=== PATIENT | female | born 1940 | race Caucasian/White ===

== ENCOUNTER 2017-03-05 15:51 | Emergency (ER) | payer MEDICARE, MEDICAID ==
[2017-03-05 16:09] VITALS: BP 160/74
--- NOTE | 2017-03-05 16:16 | EDM.PDOC ---
ED HPI Trauma - General Chief Complaint: Lower Extremity Injury/Pain Stated Complaint: THIGH/LEG SWEELING Time Seen by Provider: 03/05/17 16:02 Source: Reports: Patient History Limitations: Reports: No limitations - History of Present Illness INITIAL COMMENTS - FREE TEXT/NARRATIVE: History of present illness: [] Patient has had years of right leg swelling that has been progressively getting worse. 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 She has never been diagnosed with arthritis and denies any specific injuries to the leg or knee recently or in the past. Patient denies any chest pain, shortness of breath or calf pain. Review of systems: As per history of present illness and below otherwise all systems reviewed and negative. Past medical history: As per history of present illness and as reviewed below otherwise noncontributory. Surgical history: As per history of present illness and as reviewed below otherwise noncontributory. Social history: No reported history of drug or alcohol abuse. Family history: As per history of present illness and as reviewed below otherwise noncontributory. Physical exam: General: Well developed, well nourished in NAD HEENT: Atraumatic, normocephalic, pupils reactive, negative for conjunctival pallor or scleral icterus, mucous membranes moist, throat clear, neck supple, nontender, trachea midline. Lungs: Clear to auscultation, breath sounds equal bilaterally, chest nontender. Heart: S1S2, regular, negative for clicks, rubs, or JVD. Abdomen: Soft, nondistended, nontender. Negative for masses or hepatosplenomegaly. Negative for costovertebral tenderness. Pelvis: Stable nontender. Genitourinary: Deferred. Rectal: Deferred. Extremities: Atraumatic, marked edema of the right, leg negative for cords or calf pain. Neurovascular unremarkable. Neuro: Awake, alert. Cranial nerves II through XII unremarkable. Cerebellum unremarkable. Motor and sensory unremarkable throughout. Exam nonfocal. Diagnostics: [] X-ray of knee shows osteoarthritis, d-dimer is positive her for ultrasound right lower extremity was done and is negative for DVT Therapeutics: [] Impression: [] Chronic right lower extremity swelling, osteoarthritis right knee Plan: [] Followup PMD, elevate leg as much as possible Definitive disposition and diagnosis as appropriate pending reevaluation and review of above. Allergies/ADRs: Allergies No Known Allergies Allergy (Verified 03/05/17 16:10) Home Medications: Ambulatory Orders . [No Known Home Meds] 03/05/17 [Confirmed 03/05/17] Past Medical History - Past Health History Medical/Surgical History: Denies Medical/Surgical History - Infectious Disease History Infectious Disease History: Reports: Chicken pox, Measles, Mumps Social & Family History - Family History Family Medical History: Noncontributory - Tobacco Use Smoking Status *Q: Current Every Day Smoker Years of Tobacco use: 5 Packs/Tins Daily: 0.1 - Caffeine Use Caffeine Use: Reports: None - Recreational Drug Use Recreational Drug Use: No Review of Systems - Review of Systems Review Of Systems: See Below (See history of present illness) Trauma Exam - Physical Exam Exam: See Below (See history of present illness) Course - Vital Signs Last Recorded V/S: Last Vital Signs Temp 36.3 C 03/05/17 16:06 Pulse 103 H 03/05/17 16:06 Resp 18 03/05/17 16:06 BP 160/74 H 03/05/17 16:06 Pulse Ox 96 03/05/17 16:06 - Orders/Labs/Meds Orders: Active Orders 24 hr Category Date Time Status Knee 3V Rt [CR] Stat Exams 03/05/17 16:15 Taken Venous Doppler Lwr Ext Rt [US] Stat Exams 03/05/17 17:44 Taken Labs: Laboratory Tests 03/05/17 Range/Units 16:30 D-Dimer, Quantitative 0.85 H (0.0-0.52) mg/LFEU Departure - Departure Time of Disposition: 18:45 Disposition: Home, Self-Care 01 Condition: good Clinical Impression: Right leg swelling Osteoarthritis of right knee Qualifiers: Osteoarthritis type: unspecified Qualified Code(s): M17.11 - Unilateral primary osteoarthritis, right knee Instructions: Upper Respiratory Infection, Pediatric, [id number] Referrals: PCP,None [Primary Care Provider] - Forms: ED Department Discharge Additional Instructions: The following information is given to patients seen in the emergency department who are being discharged to home. This information is to outline your options for follow-up care. We provide all patients seen in our emergency department with a follow-up referral. The need for follow-up, as well as the timing and circumstances, are variable depending upon the specifics of your emergency department visit. If you don't have a primary care physician on staff, we will provide you with a referral. We always advise you to contact your personal physician following an emergency department visit to inform them of the circumstance of the visit and for follow-up with them and/or the need for any referrals to a consulting specialist. The emergency department will also refer you to a specialist when appropriate. This referral assures that you have the opportunity for follow-up care with a specialist. All of these measure are taken in an effort to provide you with optimal care, which includes your follow-up. Under all circumstances we always encourage you to contact your private physician who remains a resource for coordinating your care. When calling for follow-up care, please make the office aware that this follow-up is from your recent emergency room visit. If for any reason you are refused follow-up, please contact the [facility] Department at and asked to speak to the emergency department charge nurse. [facility] [address] [place] [address] - My Orders Last 24 Hours: My Active Orders 03/05/17 16:15 Knee 3V Rt [CR] Stat 03/05/17 17:44 Venous Doppler Lwr Ext Rt [US] Stat - Assessment/Plan Last 24 Hours: My Active Orders 03/05/17 16:15 Knee 3V Rt [CR] Stat 03/05/17 17:44 Venous Doppler Lwr Ext Rt [US] Stat
--- NOTE | 2017-03-06 14:06 | CR ---
EXAM DATE: 03/05/17 PATIENT'S AGE: 76 Patient: MARIA ELENA JOYCE Facility: [place], [place] Site . Site : 1940 Study: XRay Knee [id number]/10/2017 5:11:56 PM Ordering Physician: Blayne Palma Final Report: INDICATION: pain, swelling TECHNIQUE: Three views of the right knee COMPARISON: None FINDINGS: Bones: No fractures or bone lesions. Joint spaces: Tricompartmental osteoarthritic changes. Small nonspecific right knee joint effusion. Soft tissues: Unremarkable. IMPRESSION: No acute bony abnormality. Small nonspecific right knee joint effusion. Dictated by Nick Ramirez MD @ 03/05/2017 5:25:36 PM Dictated by: Nick Ramirez MD @ 03/05/2017 17:25:46 (Electronic Signature) Report Signed by Proxy and Original Signed Document filed in the Medical Record. MTDD
--- NOTE | 2017-03-06 14:17 | US ---
EXAM DATE: 03/05/17 PATIENT'S AGE: 76 Patient: MARIA ELENA JOYCE Facility: [place], [place] Site . Site : 1940 Study: US Extremity [id number]/10/2017 6:45:54 PM Ordering Physician: Blayne Palma Final Report: HISTORY: Right leg swelling. High D-dimer. Technique: Grayscale and color and spectral Doppler ultrasound of the right lower extremity deep veins. Comparison: None. Findings: Right leg: The common femoral vein is patent and compressible with normal response to augmentation. Deep femoral vein is patent. Femoral and popliteal veins are patent and compressible with normal response to augmentation. Posterior tibial and anterior tibial veins are patent and compressible. The peroneal vein is patent and compressible. Greater saphenous vein is patent and compressible at the junction with the femoral vein. Ill-defined soft tissue edema in the calf. Left leg: Common femoral vein is patent. Impression: 1. No right lower extremity DVT. 2. Right calf soft tissue edema. Dictated by Checo Fernandez MD @ Mar 05 2017 7:07PM (Electronic Signature) Report Signed by Proxy and Original Signed Document filed in the Medical Record. YASMIN
== END 2017-03-05 18:59 | disposition home or self-care (01) ==
LOC: MW.ED 15:51
DX: M17.11 Unilateral primary osteoarthritis, right knee (principal); M79.89 Other specified soft tissue disorders; F17.210 Nicotine dependence, cigarettes, uncomplicated
CPT/HCPCS: 36415; 73562-26-RT; 73562-RT; 85379; 93971-26-RT; 93971-RT; 99282; 99284-25

== ENCOUNTER → 2017-03-08 | Outpatient (CLI) | payer MEDICARE, MEDICAID | LOC: MW.CHIM 09:04 | PROVIDERS: ATTEND Internal Medicine | DX: R60.9 Edema, unspecified (principal); I50.9 Heart failure, unspecified; F03.90 Unspecified dementia, unspecified severity, without behavioral disturbance, psychotic disturbance, mood disturbance, and anxiety; I89.0 Lymphedema, not elsewhere classified | CPT/HCPCS: 36415; 80053; 83880; 85025; 99214 ==

== ENCOUNTER 2019-04-12 18:05 | Observation (INO) | payer MEDICARE, MEDICAID ==
[2019-04-12] MEDS ORDERED: Sodium Chloride 0.9% 1,000 ML IV ONE (19:09)
[2019-04-12] MEDS ORDERED: Albuterol/Ipratropium 3.0-0.5 MG/3 ML Neb Soln NEB ONE (19:09)
--- NOTE | 2019-04-12 19:09 | EDM.PDOC ---
ED HPI GENERAL MEDICAL PROBLEM - General Chief Complaint: General Stated Complaint: FEVER Time Seen by Provider: 04/12/19 18:54 Source of Information: Reports: Residential Records, Other (PACK PRESS OPERATOR from [employer]) History Limitations: Reports: Altered Mental Status (h/o end stage dementia), Combative/Threatening - History of Present Illness INITIAL COMMENTS - FREE TEXT/NARRATIVE: HISTORY AND PHYSICAL: History of present illness: Patient is a 78-year-old female who presents to the ED today from the [employer] bus with the PACK PRESS OPERATOR for concern of patient "not being her normal self". Patient has a history of end-stage dementia so history is limited due to this. PACK PRESS OPERATOR states she was given report that patient had potentially aspirated last night and since then has not been her usual self. PACK PRESS OPERATOR states that patient requires full care is to be done for her and is combative at her baseline. PACK PRESS OPERATOR states patient is not ambulatory and requires Eliel lift for transfers. Patient's family is not here with her and PACK PRESS OPERATOR states she has never actually seen them before. Patient is unable to speak to express any complaints today, per her baseline. PACK PRESS OPERATOR states patient is on an all liquid diet and has had issues with eating for quite some time. Review of systems: As per history of present illness and below otherwise all systems reviewed and negative. Past medical history: As per history of present illness and as reviewed below otherwise noncontributory. Surgical history: As per history of present illness and as reviewed below otherwise noncontributory. Social history: See social history for further information Family history: As per history of present illness and as reviewed below otherwise noncontributory. Physical exam: Exam limited due to patient combative. General: Patient is no acute distress. Patient laying comfortably on exam table. Combative when try to interact with patient. She does scream/shout occasionally on exam, PACK PRESS OPERATOR states per her baseline. Unable to communicate per her baseline. HEENT: Atraumatic, normocephalic, pupils equal and reactive bilaterally, negative for conjunctival pallor or scleral icterus, mucous membranes severely dry/tacky, TMs normal bilaterally, throat clear, neck supple, nontender, trachea midline. No drooling or trismus noted. No meningeal signs. No hot potato voice noted. Lungs: Clear to auscultation, breath sounds equal bilaterally, chest nontender. Heart: S1S2, regular rate and rhythm without overt murmur Abdomen: Firm, nondistended.Patient does express pain to palpation of abdomen. Negative for masses or hepatosplenomegaly. Negative for costovertebral tenderness. Pelvis: Stable nontender. Genitourinary: Deferred. Rectal: Deferred. Skin: Intact, warm, dry. No lesions or rashes noted. Extremities: Atraumatic, negative for cords or calf pain. Neurovascular unremarkable. Neuro: Awake, alert, oriented. Cranial nerves II through XII unremarkable. Cerebellum unremarkable. Motor and sensory unremarkable throughout. Exam nonfocal. Notes: Dr. Noble verbally involved in patient care. Son has arrived at ED after initial interview. Upon further questioning, he does not know much about his mothers health situation. Patient's kidney function and GFR are low. Discussed the risks vs benefits associated with the contrast imaging to son. Discussed the risks versus benefits of performing and not performing the scan with contrast as well as the risk to patients kidneys. Son desires to perform the scans despite this risk and is accepting of this risk. Dr. Ravi consult on patient and will admit to observation. Dr. Noble will assume care of patient and follow remaining diagnostics/ disposition, Diagnostics: CBC, CMP, UA, chest x-ray, d-dimer, CTA, abd/pelvic ct, lactate, blood cultures x 3 Therapeutics: Saline, DuoNeb, Ativan, Levoquin Impression: LLL pneumonia Dehydration End stage dementia Total self care deficit Plan: 1. Admit to observation to Dr. Ravi. Definitive disposition and diagnosis as appropriate pending reevaluation and review of above. Generalized Pain Score (Numeric/FACES): 4 - Related Data Allergies Allergy/AdvReac Type Severity Reaction Status Date / Time shellfish derived Allergy Rash Verified 04/12/19 18:30 Home Meds: Home Meds Acetaminophen [Tylenol Arthritis] 650 mg PO ASDIRECTED 04/12/19 [History] Bisacodyl [Biscolax] 10 mg RC ASDIRECTED 04/12/19 [History] Escitalopram [Lexapro] 10 mg PO DAILY 04/12/19 [History] Ferrous Sulfate [Feosol] 325 mg PO ASDIRECTED 04/12/19 [History] LORazepam [Ativan] 1 mg PO TID PRN 04/12/19 [History] Magnesium Hydroxide [Milk of Magnesia] 30 ml PO DAILY PRN 04/12/19 [History] Meloxicam 7.5 mg PO ASDIRECTED 04/12/19 [History] Past Medical History - Past Health History Medical/Surgical History: Denies Medical/Surgical History HEENT History: Reports: None Cardiovascular History: Reports: None Respiratory History: Reports: None Gastrointestinal History: Reports: None Genitourinary History: Reports: Urinary Incontinence, UTI, Recurrent HOSPICE COORDINATOR History: Reports: None Musculoskeletal History: Reports: Other (See Below) Other Musculoskeletal History: bilateral knee pain Neurological History: Reports: Alzheimers Disease Psychiatric History: Reports: Alzheimers Disease, Anxiety Endocrine/Metabolic History: Reports: None Hematologic History: Reports: None Immunologic History: Reports: None Oncologic (Cancer) History: Reports: None Dermatologic History: Reports: None - Infectious Disease History Infectious Disease History: Reports: Chicken Pox, Measles, Mumps - Past Surgical History Head Surgeries/Procedures: Reports: None Female Surgical History: Reports: None Social & Family History - Family History Family Medical History: Noncontributory - Tobacco Use Smoking Status *Q: Never Smoker Second Hand Smoke Exposure: No - Caffeine Use Caffeine Use: Reports: None - Recreational Drug Use Recreational Drug Use: No ED ROS GENERAL - Review of Systems Review Of Systems: ROS reveals no pertinent complaints other than HPI. ED EXAM, GENERAL - Physical Exam Exam: See Below (see dictation) Course - Vital Signs Last Recorded V/S: Last Vital Signs Temp 36.3 C 04/12/19 18:35 Pulse 107 H 04/12/19 21:59 Resp 21 H 04/12/19 21:59 BP 118/71 04/12/19 21:59 Pulse Ox 96 04/12/19 21:59 - Orders/Labs/Meds Orders: Active Orders 24 hr Category Date Time Status Admission Status [Patient Status] [ADT] Stat ADT 04/12/19 22:15 Active RT Aerosol Therapy [RC] ASDIRECTED Care 04/12/19 19:09 Active CULTURE BLOOD [BC] Stat Lab 04/12/19 19:04 Results CULTURE BLOOD [BC] Stat Lab 04/12/19 19:30 Received Levofloxacin/Dextrose 5%-Water [Levaquin in D5W 750 MG/ Med 04/12/19 21:10 Active 150 ML] 750 mg Premix Bag 1 bag IV ONETIME Sodium Chloride 0.9% [Normal Saline] 1,000 ml Med 04/12/19 19:09 Active IV STAT Blood Culture x2 Reflex Set [OM.PC] Stat Oth 04/12/19 19:19 Ordered Medication Orders Sodium Chloride (Normal Saline) 1,000 mls @ 100 mls/hr IV STAT ONE Stop: 04/13/19 05:08 Last Infusion: 04/12/19 20:18 Dose: 999 mls/hr Admin: 04/12/19 19:44 Dose: 100 mls/hr Levofloxacin/Dextrose 750 mg/ (Premix) 150 mls @ 100 mls/hr IV ONETIME ONE Stop: 04/12/19 22:39 Last Admin: 04/12/19 21:54 Dose: 100 mls/hr Labs: Laboratory Tests 04/12/19 04/12/19 04/12/19 Range/Units 19:04 19:04 19:04 WBC 20.86 H (4.0-11.0) K/uL RBC 3.68 L (4.30-5.90) M/uL Hgb 8.2 L (12.0-16.0) g/dL Hct 29.3 L (36.0-46.0) % MCV 79.6 L (80.0-98.0) fL MCH 22.3 L (27.0-32.0) pg MCHC 28.0 L (31.0-37.0) g/dL RDW Std Deviation 47.6 (28.0-62.0) fl RDW Coeff of Wil 17 H (11.0-15.0) % Plt Count 628 H (150-400) K/uL MPV 9.20 (7.40-12.00) fL Neut % (Auto) 85.7 H (48.0-80.0) % Lymph % (Auto) 8.8 L (16.0-40.0) % Sandoval % (Auto) 5.4 (0.0-15.0) % Eos % (Auto) 0.0 (0.0-7.0) % Baso % (Auto) 0.1 (0.0-1.5) % Neut # (Auto) 17.9 H (1.4-5.7) K/uL Lymph # (Auto) 1.8 (0.6-2.4) K/uL [place] # (Auto) 1.1 H (0.0-0.8) K/uL Eos # (Auto) 0.0 (0.0-0.7) K/uL Baso # (Auto) 0.0 (0.0-0.1) K/uL Nucleated RBC % 0.0 /100WBC Nucleated RBCs # 0 K/uL D-Dimer, Quantitative 1.70 H (0.0-0.50) mg/L FEU Lactate (0.20-2.00) mmol/L Sodium 145 (136-145) mmol/L Potassium 4.4 (3.5-5.1) mmol/L Chloride 107 (98-107) mmol/L Carbon Dioxide 27.5 (21.0-32.0) mmol/L BUN 34 H (7.0-18.0) mg/dL Creatinine 1.4 H (0.6-1.0) mg/dL Est Cr Clr Drug Dosing 31.50 mL/min Estimated GFR (MDRD) 36.5 ml/min Glucose 115 H (74-106) mg/dL Calcium 9.8 (8.5-10.1) mg/dL Total Bilirubin 0.3 (0.2-1.0) mg/dL AST 21 (15-37) IU/L ALT 13 L (14-63) IU/L Alkaline Phosphatase 155 H (46-116) U/L Total Protein 7.4 (6.4-8.2) g/dL Albumin 1.6 L (3.4-5.0) g/dL Globulin 5.8 H (2.6-4.0) g/dL Albumin/Globulin Ratio 0.3 L (0.9-1.6) Urine Color Urine Appearance Urine pH (5.0-8.0) Ur Specific [place] (1.001-1.035) Urine Protein (NEGATIVE) mg/dL Urine Glucose (UA) (NEGATIVE) mg/dL Urine Ketones (NEGATIVE) mg/dL Urine Occult Blood (NEGATIVE) Urine Nitrite (NEGATIVE) Urine Bilirubin (NEGATIVE) Urine Urobilinogen (<2.0) EU/dL Ur Leukocyte Esterase (NEGATIVE) Urine RBC (0-2/HPF) Urine WBC (0-5/HPF) Ur Epithelial Cells (NONE-FEW) Urine Bacteria (NEGATIVE) 04/12/19 04/12/19 Range/Units 19:20 19:30 WBC (4.0-11.0) K/uL RBC (4.30-5.90) M/uL Hgb (12.0-16.0) g/dL Hct (36.0-46.0) % MCV (80.0-98.0) fL MCH (27.0-32.0) pg MCHC (31.0-37.0) g/dL RDW Std Deviation (28.0-62.0) fl RDW Coeff of Wil (11.0-15.0) % Plt Count (150-400) K/uL MPV (7.40-12.00) fL Neut % (Auto) (48.0-80.0) % Lymph % (Auto) (16.0-40.0) % Sandoval % (Auto) (0.0-15.0) % Eos % (Auto) (0.0-7.0) % Baso % (Auto) (0.0-1.5) % Neut # (Auto) (1.4-5.7) K/uL Lymph # (Auto) (0.6-2.4) K/uL Sandoval # (Auto) (0.0-0.8) K/uL Eos # (Auto) (0.0-0.7) K/uL Baso # (Auto) (0.0-0.1) K/uL Nucleated RBC % /100WBC Nucleated RBCs # K/uL D-Dimer, Quantitative (0.0-0.50) mg/L FEU Lactate 1.6 (0.20-2.00) mmol/L Sodium (136-145) mmol/L Potassium (3.5-5.1) mmol/L Chloride (98-107) mmol/L Carbon Dioxide (21.0-32.0) mmol/L BUN (7.0-18.0) mg/dL Creatinine (0.6-1.0) mg/dL Est Cr Clr Drug Dosing mL/min Estimated GFR (MDRD) ml/min Glucose (74-106) mg/dL Calcium (8.5-10.1) mg/dL Total Bilirubin (0.2-1.0) mg/dL AST (15-37) IU/L ALT (14-63) IU/L Alkaline Phosphatase (46-116) U/L Total Protein (6.4-8.2) g/dL Albumin (3.4-5.0) g/dL Globulin (2.6-4.0) g/dL Albumin/Globulin Ratio (0.9-1.6) Urine Color YELLOW Urine Appearance CLEAR Urine pH 5.5 (5.0-8.0) Ur Specific [place] >= 1.030 (1.001-1.035) Urine Protein TRACE H (NEGATIVE) mg/dL Urine Glucose (UA) NEGATIVE (NEGATIVE) mg/dL Urine Ketones TRACE H (NEGATIVE) mg/dL Urine Occult Blood NEGATIVE (NEGATIVE) Urine Nitrite NEGATIVE (NEGATIVE) Urine Bilirubin NEGATIVE (NEGATIVE) Urine Urobilinogen 0.2 (<2.0) EU/dL Ur Leukocyte Esterase NEGATIVE (NEGATIVE) Urine RBC 0-2 (0-2/HPF) Urine WBC 0-2 (0-5/HPF) Ur Epithelial Cells FEW (NONE-FEW) Urine Bacteria FEW (NEGATIVE) Meds: Medications Generic Name Dose Route Start Last Admin Trade Name Sofi PRN Reason Stop Dose Admin Sodium Chloride 1,000 mls @ 100 mls/hr 04/12/19 19:09 04/12/19 20:18 Normal Saline IV 04/13/19 05:08 999 mls/hr STAT ONE Infusion Levofloxacin/Dextrose 750 mg/ 150 mls @ 100 mls/hr 04/12/19 21:10 04/12/19 21 :54 Premix IV 04/12/19 22:39 100 mls/hr ONETIME ONE Administration Discontinued Medications Generic Name Dose Route Start Last Admin Trade Name Sofi PRN Reason Stop Dose Admin Albuterol/Ipratropium 3 ml 04/12/19 19:09 04/12/19 19:45 Duoneb 3.0-0.5 Mg/3 Ml NEB 04/12/19 19:10 3 ml ONETIME ONE Administration Iopamidol 100 ml 04/12/19 21:39 04/12/19 21:44 Isovue-370 (76%) IVPUSH 04/12/19 21:40 100 ml ONETIME ONE Administration Lorazepam 0.5 mg 04/12/19 19:01 04/12/19 20:10 Ativan IVPUSH 04/12/19 19:02 0.5 mg ONETIME ONE Administration Departure - Departure Time of Disposition: 22:19 Disposition: Refer to Observation Clinical Impression: Dehydration, Total self-care deficit Left lower lobe pneumonia Qualifiers: Pneumonia type: due to unspecified organism Qualified Code(s): J18.1 - Lobar pneumonia, unspecified organism Dementia Qualifiers: Dementia type: unspecified type Dementia behavioral disturbance: with behavioral disturbance Qualified Code(s): F03.91 - Unspecified dementia with behavioral disturbance - Discharge Information Referrals: Jose Luis Salas MD [Primary Care Provider] - Forms: ED Department Discharge - My Orders Last 24 Hours: My Active Orders 04/12/19 19:04 CULTURE BLOOD [BC] Stat 04/12/19 19:09 RT Aerosol Therapy [RC] ASDIRECTED Sodium Chloride 0.9% [Normal Saline] 1,000 ml IV STAT 04/12/19 19:19 Blood Culture x2 Reflex Set [OM.PC] Stat 04/12/19 19:30 CULTURE BLOOD [BC] Stat 04/12/19 21:10 Levofloxacin/Dextrose 5%-Water [Levaquin in D5W 750 MG/150 ML] 750 mg Premix Bag 1 bag IV ONETIME 04/12/19 22:15 Admission Status [Patient Status] [ADT] Stat - Assessment/Plan Last 24 Hours: My Active Orders 04/12/19 19:04 CULTURE BLOOD [BC] Stat 04/12/19 19:09 RT Aerosol Therapy [RC] ASDIRECTED Sodium Chloride 0.9% [Normal Saline] 1,000 ml IV STAT 04/12/19 19:19 Blood Culture x2 Reflex Set [OM.PC] Stat 04/12/19 19:30 CULTURE BLOOD [BC] Stat 04/12/19 21:10 Levofloxacin/Dextrose 5%-Water [Levaquin in D5W 750 MG/150 ML] 750 mg Premix Bag 1 bag IV ONETIME 04/12/19 22:15 Admission Status [Patient Status] [ADT] Stat
[2019-04-12] MEDS: LORazepam 2 MG/ML SDV IVPUSH ONE ×2 (19:45→20:10)
--- NOTE | 2019-04-12 19:52 | CR ---
INDICATION: Hypoxia COMPARISON: none TECHNIQUE: AP erect chest performed at 7:12 p.m. FINDINGS: There is a focal infiltrate within the posterior basal segment left lower lobe. Lungs are otherwise clear. The heart, mediastinum and pulmonary vessels are of normal size. There is no evidence of pleural fluid. IMPRESSION: Left lower lobe pneumonia. Dictated by Hector Travis MD @ Apr 12 2019 7:48PM Signed by Dr. Hector Travis @ Apr 12 2019 7:49PM
[2019-04-12] MEDS ORDERED: Levofloxacin/Dextrose 5%-Water 750 MG in Premix Bag 1 BAG IV ONE (21:10)
[2019-04-12] MEDS ORDERED: Iopamidol 755 Mg/ML 100 ML Bottle IVPUSH ONE (21:39)
--- NOTE | 2019-04-12 22:10 | CT ---
HISTORY: Chest pain, fever. TECHNIQUE: 100 mL of Isovue-370 intravenous contrast administered. COMPARISON: No prior. FINDINGS: Assessment for pulmonary emboli is limited by both respiratory motion and nonoptimal opacification of the pulmonary arterial circulation. There is no large or central pulmonary embolus though overall the study is nondiagnostic for pulmonary embolism. Lower lobe segmental and subsegmental pulmonary emboli are poorly evaluated. There is decreased attenuation within a right upper lobe apicoposterior pulmonary artery on image #230 of series 41. This could relate to artifact though a pulmonary embolism in that location is not excluded. Consideration could be given to obtaining a repeat study. Alternately, venous ultrasound lower leg CT performed to assess for DVT. There is no thoracic aortic aneurysm or dissection. Coronary arteriosclerotic vascular calcifications are present. No significant pericardial effusion. - There are infiltrates within the lower lobes, especially left lower lobe where there is consolidation. This may relate to pneumonia. Areas of atelectasis within the right middle lobe and lingula. Within the upper lobes, there are centrilobular nodular infiltrates. There is no pleural effusion or pneumothorax. - Degenerative changes of the spine. No acute fractures. IMPRESSION: 1. Bilateral lung infiltrates including consolidation within the left lower lobe likely indicating pneumonia. Additional areas of nodular infiltrate. Followup to confirm resolution is recommended. 2. Study is nondiagnostic/indeterminate for pulmonary embolism secondary to respiratory motion and inadequate opacification of the pulmonary arterial circulation. There is no large or central pulmonary embolus. Depending on clinical suspicion for pulmonary embolism, either repeat study with reinjection of contrast could be performed or alternatively venous ultrasound of the lower extremities could be performed to assess for DVT. Dictated by Jacques Braga MD @ 04/12/2019 10:08:56 PM Please note that all CT scans at this facility use dose modulation, iterative reconstruction, and/or weight-based dosing when appropriate to reduce radiation dose to as low as reasonably achievable. Dictated by: Jacques Braga MD @ 04/12/2019 22:09:03 (Electronically Signed)
--- NOTE | 2019-04-12 22:16 | CT ---
HISTORY: Pain. Fever. TECHNIQUE: Intravenous contrast enhanced CT of the abdomen and pelvis. 100 mL of Isovue-370 intravenous contrast administered. COMPARISON: No prior. FINDINGS: Chest CT is reported separately. Please see that report for further details regarding lung parenchymal findings. - There is a 4.6 cm mass within the right hepatic lobe. This is seen on image #44 and could relate to a primary hepatic neoplasm or a metastatic lesion. There is no biliary ductal dilatation. Patient is status post cholecystectomy. The spleen and adrenal glands are normal. There is no focal pancreatic abnormality. Symmetric nephrograms. No hydronephrosis. No obstructive urinary calculus. Urinary bladder is nondistended. Patient has previously undergone a hysterectomy. - No small bowel obstruction. Large amount of stool within the rectum. No diverticulitis. No abdominal fluid collection or free air. Mildly ectatic abdominal aorta which measures 2.3 cm diameter. - Heterogeneous 13 cm masslike process involving the left gluteal region, posterior to the ischium and proximal femur. This is seen on image #164 of series 501 extends beyond the [id number]. This could relate to a soft tissue tumor. A complex hematoma would be a additional consideration. - Degenerative changes of the lumbar spine. No acute lumbar fracture. No acute pelvic fracture. IMPRESSION: 1. 4.6 cm right hepatic lobe mass which could relate to a primary hepatic neoplasm or to a metastasis. 2. 13 cm complex process involving the left gluteal region may relate to a soft tissue tumor. A complex hematoma would be an additional consideration. 3. Prior cholecystectomy. Normal appearance of the biliary system status postcholecystectomy. 4. Large amount of stool within the rectum. 5. Please see chest CT report for further details regarding lung parenchymal findings. Dictated by Jacques Braga MD @ 04/12/2019 10:15:01 PM Please note that all CT scans at this facility use dose modulation, iterative reconstruction, and/or weight-based dosing when appropriate to reduce radiation dose to as low as reasonably achievable. Dictated by: Jacques Braga MD @ 04/12/2019 22:15:06 (Electronically Signed)
[2019-04-12] MEDS ORDERED: LORazepam 2 MG/ML SDV IVPUSH PRN (22:56)
[2019-04-12] MEDS ORDERED: Acetaminophen 325 MG Tab PO PRN (22:57)
[2019-04-12] MEDS ORDERED: oxyCODONE 5 MG Tab PO PRN (22:57)
[2019-04-12] MEDS ORDERED: Albuterol/Ipratropium 3.0-0.5 MG/3 ML Neb Soln NEB PRN (22:58)
[2019-04-12] MEDS ORDERED: Sodium Chloride 0.9% 1,000 ML IV SCH (23:00)
[2019-04-13] MEDS ORDERED: LORazepam 1 MG Tab PO PRN (04:55)
[2019-04-13] MEDS ORDERED: Magnesium Hydroxide 400 MG/5 ML Susp 30 ML Cup PO PRN (04:55)
[2019-04-13] MEDS ORDERED: Temazepam 15 MG Cap PO PRN (04:56)
[2019-04-13] MEDS ORDERED: Heparin Sodium 5,000 Units/ML Vial SUBCUT SCH (05:00)
[2019-04-13] MEDS: Escitalopram 10 MG Tab PO SCH (08:20)
--- NOTE | 2019-04-13 08:26 | PCM.HP ---
<Denton Aguirre - Last Filed: 04/13/19 08:32> H&P History of Present Illness - General Date of Service: 04/13/19 Admit Problem/Dx: Admission Diagnosis/Problem Admission Diagnosis/Problem Pneumonia Source of Information: Old Records History Limitations: Reports: No Limitations - History of Present Illness Initial Comments - Free Text/Narative: 78F history of dementia from [place] home presented to the ER with concerns of possible aspiration the night before. As per supply controller, she has not been her usual self. ER work up found the patient to have bilateral infiltrates with predominately a LLL pneumonia. CT angiography was unable to rule out a PE but clinically, there is a etiology (pneumonia) for the patient's state along with no calf tenderness, tachypnea, or other risks concerning of a PE. Generalized Pain Score (Numeric/FACES): 4 - Related Data Allergies/Adverse Reactions: Allergies Allergy/AdvReac Type Severity Reaction Status Date / Time shellfish derived Allergy Rash Verified 04/12/19 18:30 Home Medications: Home Meds Acetaminophen [Tylenol Arthritis] 650 mg PO Q4H 04/12/19 [History] Bisacodyl [Biscolax] 10 mg RC DAILY PRN 04/12/19 [History] Escitalopram [Lexapro] 10 mg PO DAILY 04/12/19 [History] Ferrous Sulfate [Feosol] 325 mg PO BID 04/12/19 [History] LORazepam [Ativan] 1 mg PO BID PRN 04/12/19 [History] Magnesium Hydroxide [Milk of Magnesia] 30 ml PO DAILY PRN 04/12/19 [History] Meloxicam 7.5 mg PO DAILY 04/12/19 [History] Acetaminophen [Arthritis Pain Relief] 650 mg PO TID 04/13/19 [History] Furosemide 20 mg PO DAILY 04/13/19 [History] Menthol [Cold & Hot Pain Relief] 1 each TP TID 04/13/19 [History] Multivitamin with Minerals [Multiple Vitamin] 1 tab PO DAILY 04/13/19 [History] Past Medical History - Past Health History Medical/Surgical History: Denies Medical/Surgical History HEENT History: Reports: None Cardiovascular History: Reports: None Respiratory History: Reports: None Gastrointestinal History: Reports: None Genitourinary History: Reports: Urinary Incontinence, UTI, Recurrent ANALYTICS ARCHITECT History: Reports: None Musculoskeletal History: Reports: Other (See Below) Other Musculoskeletal History: bilateral knee pain Neurological History: Reports: Alzheimers Disease Psychiatric History: Reports: Alzheimers Disease, Anxiety Endocrine/Metabolic History: Reports: None Hematologic History: Reports: None Immunologic History: Reports: None Oncologic (Cancer) History: Reports: None Dermatologic History: Reports: None - Infectious Disease History Infectious Disease History: Reports: Chicken Pox, Measles, Mumps - Past Surgical History Head Surgeries/Procedures: Reports: None Female Surgical History: Reports: None Social & Family History - Family History Family Medical History: Noncontributory - Tobacco Use Smoking Status *Q: Never Smoker Second Hand Smoke Exposure: No - Caffeine Use Caffeine Use: Reports: None - Recreational Drug Use Recreational Drug Use: No H&P Review of Systems - Review of Systems: Review Of Systems: Unable To Obtain (secondary to advanced dementia) Exam - Exam Exam: See Below - Vital Signs Vital Signs: Last Vital Signs Temp 36.3 C 04/13/19 07:40 Pulse 100 04/13/19 07:40 Resp 16 04/13/19 07:40 BP 110/59 L 04/13/19 07:40 Pulse Ox 93 L 04/13/19 07:40 Weight: 87.09 kg - Exam General: Alert HEENT: Conjunctiva Clear, Mucosa Moist & [place] Neck: Supple, Trachea Midline Lungs: Clear to Auscultation, Normal Respiratory Effort Cardiovascular: Regular Rate, Regular Rhythm GI/Abdominal Exam: Normal Bowel Sounds, Soft Extremities: Other (trace edema) Peripheral Pulses: 1+: Dorsalis Pedis (L), Dorsalis Pedis (R) Psychiatric: Alert - Patient Data Lab Results Last 24 hrs: Laboratory Results - last 24 hr 04/12/19 04/12/19 04/12/19 Range/Units 19:04 19:04 19:04 WBC 20.86 H (4.0-11.0) K/uL RBC 3.68 L (4.30-5.90) M/uL Hgb 8.2 L (12.0-16.0) g/dL Hct 29.3 L (36.0-46.0) % MCV 79.6 L (80.0-98.0) fL MCH 22.3 L (27.0-32.0) pg MCHC 28.0 L (31.0-37.0) g/dL RDW Std Deviation 47.6 (28.0-62.0) fl RDW Coeff of Wil 17 H (11.0-15.0) % Plt Count 628 H (150-400) K/uL MPV 9.20 (7.40-12.00) fL Neut % (Auto) 85.7 H (48.0-80.0) % Lymph % (Auto) 8.8 L (16.0-40.0) % [place] % (Auto) 5.4 (0.0-15.0) % Eos % (Auto) 0.0 (0.0-7.0) % Baso % (Auto) 0.1 (0.0-1.5) % Neut # (Auto) 17.9 H (1.4-5.7) K/uL Lymph # (Auto) 1.8 (0.6-2.4) K/uL [place] # (Auto) 1.1 H (0.0-0.8) K/uL Eos # (Auto) 0.0 (0.0-0.7) K/uL Baso # (Auto) 0.0 (0.0-0.1) K/uL Nucleated RBC % 0.0 /100WBC Nucleated RBCs # 0 K/uL D-Dimer, Quantitative 1.70 H (0.0-0.50) mg/L FEU Lactate (0.20-2.00) mmol/L Sodium 145 (136-145) mmol/L Potassium 4.4 (3.5-5.1) mmol/L Chloride 107 (98-107) mmol/L Carbon Dioxide 27.5 (21.0-32.0) mmol/L BUN 34 H (7.0-18.0) mg/dL Creatinine 1.4 H (0.6-1.0) mg/dL Est Cr Clr Drug Dosing 31.50 mL/min Estimated GFR (MDRD) 36.5 ml/min Glucose 115 H (74-106) mg/dL Calcium 9.8 (8.5-10.1) mg/dL Total Bilirubin 0.3 (0.2-1.0) mg/dL AST 21 (15-37) IU/L ALT 13 L (14-63) IU/L Alkaline Phosphatase 155 H (46-116) U/L Total Protein 7.4 (6.4-8.2) g/dL Albumin 1.6 L (3.4-5.0) g/dL Globulin 5.8 H (2.6-4.0) g/dL Albumin/Globulin Ratio 0.3 L (0.9-1.6) Urine Color Urine Appearance Urine pH (5.0-8.0) Ur Specific [place] (1.001-1.035) Urine Protein (NEGATIVE) mg/dL Urine Glucose (UA) (NEGATIVE) mg/dL Urine Ketones (NEGATIVE) mg/dL Urine Occult Blood (NEGATIVE) Urine Nitrite (NEGATIVE) Urine Bilirubin (NEGATIVE) Urine Urobilinogen (<2.0) EU/dL Ur Leukocyte Esterase (NEGATIVE) Urine RBC (0-2/HPF) Urine WBC (0-5/HPF) Ur Epithelial Cells (NONE-FEW) Urine Bacteria (NEGATIVE) 04/12/19 04/12/19 04/13/19 Range/Units 19:20 19:30 07:01 WBC 12.55 H (4.0-11.0) K/uL RBC 2.90 L (4.30-5.90) M/uL Hgb 6.5 L (12.0-16.0) g/dL Hct 23.2 L (36.0-46.0) % MCV 80.0 (80.0-98.0) fL MCH 22.4 L (27.0-32.0) pg MCHC 28.0 L (31.0-37.0) g/dL RDW Std Deviation 48.9 (28.0-62.0) fl RDW Coeff of Wil 17 H (11.0-15.0) % Plt Count 499 H (150-400) K/uL MPV 8.80 (7.40-12.00) fL Neut % (Auto) 87.0 H (48.0-80.0) % Lymph % (Auto) 6.9 L (16.0-40.0) % [place] % (Auto) 5.5 (0.0-15.0) % Eos % (Auto) 0.5 (0.0-7.0) % Baso % (Auto) 0.1 (0.0-1.5) % Neut # (Auto) 10.9 H (1.4-5.7) K/uL Lymph # (Auto) 0.9 (0.6-2.4) K/uL [place] # (Auto) 0.7 (0.0-0.8) K/uL Eos # (Auto) 0.1 (0.0-0.7) K/uL Baso # (Auto) 0.0 (0.0-0.1) K/uL Nucleated RBC % 0.0 /100WBC Nucleated RBCs # 0 K/uL D-Dimer, Quantitative (0.0-0.50) mg/L FEU Lactate 1.6 (0.20-2.00) mmol/L Sodium (136-145) mmol/L Potassium (3.5-5.1) mmol/L Chloride (98-107) mmol/L Carbon Dioxide (21.0-32.0) mmol/L BUN (7.0-18.0) mg/dL Creatinine (0.6-1.0) mg/dL Est Cr Clr Drug Dosing mL/min Estimated GFR (MDRD) ml/min Glucose (74-106) mg/dL Calcium (8.5-10.1) mg/dL Total Bilirubin (0.2-1.0) mg/dL AST (15-37) IU/L ALT (14-63) IU/L Alkaline Phosphatase (46-116) U/L Total Protein (6.4-8.2) g/dL Albumin (3.4-5.0) g/dL Globulin (2.6-4.0) g/dL Albumin/Globulin Ratio (0.9-1.6) Urine Color YELLOW Urine Appearance CLEAR Urine pH 5.5 (5.0-8.0) Ur Specific [place] >= 1.030 (1.001-1.035) Urine Protein TRACE H (NEGATIVE) mg/dL Urine Glucose (UA) NEGATIVE (NEGATIVE) mg/dL Urine Ketones TRACE H (NEGATIVE) mg/dL Urine Occult Blood NEGATIVE (NEGATIVE) Urine Nitrite NEGATIVE (NEGATIVE) Urine Bilirubin NEGATIVE (NEGATIVE) Urine Urobilinogen 0.2 (<2.0) EU/dL Ur Leukocyte Esterase NEGATIVE (NEGATIVE) Urine RBC 0-2 (0-2/HPF) Urine WBC 0-2 (0-5/HPF) Ur Epithelial Cells FEW (NONE-FEW) Urine Bacteria FEW (NEGATIVE) 04/13/19 Range/Units 07:01 WBC (4.0-11.0) K/uL RBC (4.30-5.90) M/uL Hgb (12.0-16.0) g/dL Hct (36.0-46.0) % MCV (80.0-98.0) fL MCH (27.0-32.0) pg MCHC (31.0-37.0) g/dL RDW Std Deviation (28.0-62.0) fl RDW Coeff of Wil (11.0-15.0) % Plt Count (150-400) K/uL MPV (7.40-12.00) fL Neut % (Auto) (48.0-80.0) % Lymph % (Auto) (16.0-40.0) % [place] % (Auto) (0.0-15.0) % Eos % (Auto) (0.0-7.0) % Baso % (Auto) (0.0-1.5) % Neut # (Auto) (1.4-5.7) K/uL Lymph # (Auto) (0.6-2.4) K/uL [place] # (Auto) (0.0-0.8) K/uL Eos # (Auto) (0.0-0.7) K/uL Baso # (Auto) (0.0-0.1) K/uL Nucleated RBC % /100WBC Nucleated RBCs # K/uL D-Dimer, Quantitative (0.0-0.50) mg/L FEU Lactate (0.20-2.00) mmol/L Sodium 145 (136-145) mmol/L Potassium 3.7 (3.5-5.1) mmol/L Chloride 110 H (98-107) mmol/L Carbon Dioxide 27.1 (21.0-32.0) mmol/L BUN 27 H (7.0-18.0) mg/dL Creatinine 1.0 (0.6-1.0) mg/dL Est Cr Clr Drug Dosing 44.35 mL/min Estimated GFR (MDRD) 53.8 ml/min Glucose 88 (74-106) mg/dL Calcium 8.9 (8.5-10.1) mg/dL Total Bilirubin 0.2 (0.2-1.0) mg/dL AST 17 (15-37) IU/L ALT 13 L (14-63) IU/L Alkaline Phosphatase 115 (46-116) U/L Total Protein 5.9 L (6.4-8.2) g/dL Albumin 1.2 L (3.4-5.0) g/dL Globulin 4.7 H (2.6-4.0) g/dL Albumin/Globulin Ratio 0.3 L (0.9-1.6) Urine Color Urine Appearance Urine pH (5.0-8.0) Ur Specific [place] (1.001-1.035) Urine Protein (NEGATIVE) mg/dL Urine Glucose (UA) (NEGATIVE) mg/dL Urine Ketones (NEGATIVE) mg/dL Urine Occult Blood (NEGATIVE) Urine Nitrite (NEGATIVE) Urine Bilirubin (NEGATIVE) Urine Urobilinogen (<2.0) EU/dL Ur Leukocyte Esterase (NEGATIVE) Urine RBC (0-2/HPF) Urine WBC (0-5/HPF) Ur Epithelial Cells (NONE-FEW) Urine Bacteria (NEGATIVE) Result Diagrams: 04/13/19 07:01 04/13/19 07:01 Murphy Results Last 24 hrs: Microbiology 04/12/19 19:04 Anaerobic Blood Culture - Final Blood - Venous Problem List Initiated/Reviewed/Updated: Yes Orders Last 24hrs: Active Orders 24 hr Category Date Time Status Admission Status [Patient Status] [ADT] Stat ADT 04/12/19 22:15 Active Oxygen Therapy [RC] PRN Care 04/13/19 04:56 Active RT Aerosol Therapy [RC] ASDIRECTED Care 04/12/19 19:09 Active RT Aerosol Therapy [RC] ASDIRECTED Care 04/12/19 22:58 Active Direct Response Consultant Discontinue [Cardiac Monitoring Care 04/12/19 22:55 Active Discontinue] [RC] Click to Edit VTE/DVT Education [RC] PER UNIT ROUTINE Care 04/13/19 04:56 Active Vital Signs [RC] Q4H Care 04/13/19 04:56 Active Consult to Hospice [CONS] Routine Cons 04/13/19 05:54 Active Pureed Diet [DIET] Diet 04/13/19 Breakfast Active CULTURE BLOOD [BC] Stat Lab 04/12/19 19:04 Results CULTURE BLOOD [BC] Stat Lab 04/12/19 19:30 Received Acetaminophen [Tylenol] Med 04/12/19 22:57 Active 650 mg PO Q6H PRN Albuterol/Ipratropium [DuoNeb 3.0-0.5 MG/3 ML] Med 04/12/19 22:58 Active 3 ml NEB Q4HRRT PRN Escitalopram [Lexapro] Med 04/13/19 09:00 Active 10 mg PO DAILY Furosemide [Lasix] Med 04/13/19 09:00 Active 20 mg PO DAILY Heparin Sodium Med 04/13/19 05:00 Active 5,000 units SUBCUT Q8H LORazepam [Ativan] Med 04/12/19 22:56 Active 1 mg IVPUSH Q6H PRN LORazepam [Ativan] Med 04/13/19 04:55 Active 1 mg PO BID PRN Levofloxacin/Dextrose 5%-Water [Levaquin in D5W 250 MG/ Med 04/13/19 21:00 Active 50 ML] 250 mg Premix Bag 1 bag IV Q24H Magnesium Hydroxide [Milk of Magnesia] Med 04/13/19 04:55 Active 30 ml PO DAILY PRN Meloxicam [Mobic] Med 04/13/19 09:00 Active 7.5 mg PO DAILY Temazepam [Restoril] Med 04/13/19 04:56 Active 15 mg PO BEDTIME PRN oxyCODONE Med 04/12/19 22:57 Active 5 mg PO Q4H PRN Blood Culture x2 Reflex Set [OM.PC] Stat Oth 04/12/19 19:19 Ordered Resuscitation Status Routine Resus Stat 04/13/19 04:56 Ordered Medication Orders Acetaminophen (Tylenol) 650 mg PO Q6H PRN PRN Reason: Pain Albuterol/Ipratropium (Duoneb 3.0-0.5 Mg/3 Ml) 3 ml NEB Q4HRRT PRN PRN Reason: Shortness of Breath Escitalopram Oxalate (Lexapro) 10 mg PO DAILY [facility] Last Admin: 04/13/19 08:20 Dose: 10 mg Furosemide (Lasix) 20 mg PO DAILY [facility] Last Admin: 04/13/19 08:20 Dose: 20 mg Heparin Sodium (Porcine) (Heparin Sodium) 5,000 units SUBCUT Q8H [facility] Last Admin: 04/13/19 05:32 Dose: 5,000 units Levofloxacin/Dextrose 250 mg/ (Premix) 50 mls @ 50 mls/hr IV Q24H [facility] Lorazepam (Ativan) 1 mg IVPUSH Q6H PRN PRN Reason: Agitation Lorazepam (Ativan) 1 mg PO BID PRN PRN Reason: Allergies Magnesium Hydroxide (Milk Of Magnesia) 30 ml PO DAILY PRN PRN Reason: Constipation Meloxicam (Mobic) 7.5 mg PO DAILY [facility] Last Admin: 04/13/19 08:20 Dose: 7.5 mg Oxycodone HCl (Oxycodone) 5 mg PO Q4H PRN PRN Reason: Pain (moderate 4-6) Temazepam (Restoril) 15 mg PO BEDTIME PRN PRN Reason: Sleep Assessment/Plan Comment:: Assessment: #1. LLL Pneumonia #2. Leukocytosis #3. Normocytic anemia #4. RAMY #5. Thrombocytosis #6. History of advanced dementia, HLD, Mitral valve insufficiency Plan: #1. Refer to observation. Vitals per floor. DNR/DNI #2. Pureed diet #3. IV Levaquin #4. PRBC 2 units, recheck H/H #5. DC fluids given improvement in kidney function and trace edema on exam #6. Consult hospice as per attending #7. Stop heparin given anemia <[facility] Ravi - Last Filed: 04/13/19 09:10> H&P History of Present Illness - General Admit Problem/Dx: Admission Diagnosis/Problem Admission Diagnosis/Problem Pneumonia I have seen and examined to patient independently of medical records manager, Denton Aguirre MD. I have discussed the case for care of this patient with him. I have reviewed and approve of the plan of care as outlined by medical records manager.. Please see orders. Exam - Vital Signs Vital Signs: Last Vital Signs Temp 36.3 C 04/13/19 07:40 Pulse 100 04/13/19 07:40 Resp 16 04/13/19 07:40 BP 110/59 L 04/13/19 07:40 Pulse Ox 93 L 04/13/19 07:40 - Patient Data Lab Results Last 24 hrs: Laboratory Results - last 24 hr 04/12/19 04/12/19 04/12/19 Range/Units 19:04 19:04 19:04 WBC 20.86 H (4.0-11.0) K/uL RBC 3.68 L (4.30-5.90) M/uL Hgb 8.2 L (12.0-16.0) g/dL Hct 29.3 L (36.0-46.0) % MCV 79.6 L (80.0-98.0) fL MCH 22.3 L (27.0-32.0) pg MCHC 28.0 L (31.0-37.0) g/dL RDW Std Deviation 47.6 (28.0-62.0) fl RDW Coeff of Wil 17 H (11.0-15.0) % Plt Count 628 H (150-400) K/uL MPV 9.20 (7.40-12.00) fL Neut % (Auto) 85.7 H (48.0-80.0) % Lymph % (Auto) 8.8 L (16.0-40.0) % [place] % (Auto) 5.4 (0.0-15.0) % Eos % (Auto) 0.0 (0.0-7.0) % Baso % (Auto) 0.1 (0.0-1.5) % Neut # (Auto) 17.9 H (1.4-5.7) K/uL Lymph # (Auto) 1.8 (0.6-2.4) K/uL [place] # (Auto) 1.1 H (0.0-0.8) K/uL Eos # (Auto) 0.0 (0.0-0.7) K/uL Baso # (Auto) 0.0 (0.0-0.1) K/uL Nucleated RBC % 0.0 /100WBC Nucleated RBCs # 0 K/uL D-Dimer, Quantitative 1.70 H (0.0-0.50) mg/L FEU Lactate (0.20-2.00) mmol/L Sodium 145 (136-145) mmol/L Potassium 4.4 (3.5-5.1) mmol/L Chloride 107 (98-107) mmol/L Carbon Dioxide 27.5 (21.0-32.0) mmol/L BUN 34 H (7.0-18.0) mg/dL Creatinine 1.4 H (0.6-1.0) mg/dL Est Cr Clr Drug Dosing 31.50 mL/min Estimated GFR (MDRD) 36.5 ml/min Glucose 115 H (74-106) mg/dL Calcium 9.8 (8.5-10.1) mg/dL Total Bilirubin 0.3 (0.2-1.0) mg/dL AST 21 (15-37) IU/L ALT 13 L (14-63) IU/L Alkaline Phosphatase 155 H (46-116) U/L Total Protein 7.4 (6.4-8.2) g/dL Albumin 1.6 L (3.4-5.0) g/dL Globulin 5.8 H (2.6-4.0) g/dL Albumin/Globulin Ratio 0.3 L (0.9-1.6) Urine Color Urine Appearance Urine pH (5.0-8.0) Ur Specific [place] (1.001-1.035) Urine Protein (NEGATIVE) mg/dL Urine Glucose (UA) (NEGATIVE) mg/dL Urine Ketones (NEGATIVE) mg/dL Urine Occult Blood (NEGATIVE) Urine Nitrite (NEGATIVE) Urine Bilirubin (NEGATIVE) Urine Urobilinogen (<2.0) EU/dL Ur Leukocyte Esterase (NEGATIVE) Urine RBC (0-2/HPF) Urine WBC (0-5/HPF) Ur Epithelial Cells (NONE-FEW) Urine Bacteria (NEGATIVE) 04/12/19 04/12/19 04/13/19 Range/Units 19:20 19:30 07:01 WBC 12.55 H (4.0-11.0) K/uL RBC 2.90 L (4.30-5.90) M/uL Hgb 6.5 L (12.0-16.0) g/dL Hct 23.2 L (36.0-46.0) % MCV 80.0 (80.0-98.0) fL MCH 22.4 L (27.0-32.0) pg MCHC 28.0 L (31.0-37.0) g/dL RDW Std Deviation 48.9 (28.0-62.0) fl RDW Coeff of Wil 17 H (11.0-15.0) % Plt Count 499 H (150-400) K/uL MPV 8.80 (7.40-12.00) fL Neut % (Auto) 87.0 H (48.0-80.0) % Lymph % (Auto) 6.9 L (16.0-40.0) % [place] % (Auto) 5.5 (0.0-15.0) % Eos % (Auto) 0.5 (0.0-7.0) % Baso % (Auto) 0.1 (0.0-1.5) % Neut # (Auto) 10.9 H (1.4-5.7) K/uL Lymph # (Auto) 0.9 (0.6-2.4) K/uL [place] # (Auto) 0.7 (0.0-0.8) K/uL Eos # (Auto) 0.1 (0.0-0.7) K/uL Baso # (Auto) 0.0 (0.0-0.1) K/uL Nucleated RBC % 0.0 /100WBC Nucleated RBCs # 0 K/uL D-Dimer, Quantitative (0.0-0.50) mg/L FEU Lactate 1.6 (0.20-2.00) mmol/L Sodium (136-145) mmol/L Potassium (3.5-5.1) mmol/L Chloride (98-107) mmol/L Carbon Dioxide (21.0-32.0) mmol/L BUN (7.0-18.0) mg/dL Creatinine (0.6-1.0) mg/dL Est Cr Clr Drug Dosing mL/min Estimated GFR (MDRD) ml/min Glucose (74-106) mg/dL Calcium (8.5-10.1) mg/dL Total Bilirubin (0.2-1.0) mg/dL AST (15-37) IU/L ALT (14-63) IU/L Alkaline Phosphatase (46-116) U/L Total Protein (6.4-8.2) g/dL Albumin (3.4-5.0) g/dL Globulin (2.6-4.0) g/dL Albumin/Globulin Ratio (0.9-1.6) Urine Color YELLOW Urine Appearance CLEAR Urine pH 5.5 (5.0-8.0) Ur Specific [place] >= 1.030 (1.001-1.035) Urine Protein TRACE H (NEGATIVE) mg/dL Urine Glucose (UA) NEGATIVE (NEGATIVE) mg/dL Urine Ketones TRACE H (NEGATIVE) mg/dL Urine Occult Blood NEGATIVE (NEGATIVE) Urine Nitrite NEGATIVE (NEGATIVE) Urine Bilirubin NEGATIVE (NEGATIVE) Urine Urobilinogen 0.2 (<2.0) EU/dL Ur Leukocyte Esterase NEGATIVE (NEGATIVE) Urine RBC 0-2 (0-2/HPF) Urine WBC 0-2 (0-5/HPF) Ur Epithelial Cells FEW (NONE-FEW) Urine Bacteria FEW (NEGATIVE) 04/13/19 Range/Units 07:01 WBC (4.0-11.0) K/uL RBC (4.30-5.90) M/uL Hgb (12.0-16.0) g/dL Hct (36.0-46.0) % MCV (80.0-98.0) fL MCH (27.0-32.0) pg MCHC (31.0-37.0) g/dL RDW Std Deviation (28.0-62.0) fl RDW Coeff of Wil (11.0-15.0) % Plt Count (150-400) K/uL MPV (7.40-12.00) fL Neut % (Auto) (48.0-80.0) % Lymph % (Auto) (16.0-40.0) % [place] % (Auto) (0.0-15.0) % Eos % (Auto) (0.0-7.0) % Baso % (Auto) (0.0-1.5) % Neut # (Auto) (1.4-5.7) K/uL Lymph # (Auto) (0.6-2.4) K/uL [place] # (Auto) (0.0-0.8) K/uL Eos # (Auto) (0.0-0.7) K/uL Baso # (Auto) (0.0-0.1) K/uL Nucleated RBC % /100WBC Nucleated RBCs # K/uL D-Dimer, Quantitative (0.0-0.50) mg/L FEU Lactate (0.20-2.00) mmol/L Sodium 145 (136-145) mmol/L Potassium 3.7 (3.5-5.1) mmol/L Chloride 110 H (98-107) mmol/L Carbon Dioxide 27.1 (21.0-32.0) mmol/L BUN 27 H (7.0-18.0) mg/dL Creatinine 1.0 (0.6-1.0) mg/dL Est Cr Clr Drug Dosing 44.35 mL/min Estimated GFR (MDRD) 53.8 ml/min Glucose 88 (74-106) mg/dL Calcium 8.9 (8.5-10.1) mg/dL Total Bilirubin 0.2 (0.2-1.0) mg/dL AST 17 (15-37) IU/L ALT 13 L (14-63) IU/L Alkaline Phosphatase 115 (46-116) U/L Total Protein 5.9 L (6.4-8.2) g/dL Albumin 1.2 L (3.4-5.0) g/dL Globulin 4.7 H (2.6-4.0) g/dL Albumin/Globulin Ratio 0.3 L (0.9-1.6) Urine Color Urine Appearance Urine pH (5.0-8.0) Ur Specific [place] (1.001-1.035) Urine Protein (NEGATIVE) mg/dL Urine Glucose (UA) (NEGATIVE) mg/dL Urine Ketones (NEGATIVE) mg/dL Urine Occult Blood (NEGATIVE) Urine Nitrite (NEGATIVE) Urine Bilirubin (NEGATIVE) Urine Urobilinogen (<2.0) EU/dL Ur Leukocyte Esterase (NEGATIVE) Urine RBC (0-2/HPF) Urine WBC (0-5/HPF) Ur Epithelial Cells (NONE-FEW) Urine Bacteria (NEGATIVE) Result Diagrams: 04/13/19 07:01 04/13/19 07:01 [place] Results Last 24 hrs: Microbiology 04/12/19 19:04 Anaerobic Blood Culture - Final Blood - Venous Orders Last 24hrs: Active Orders 24 hr Category Date Time Status Admission Status [Patient Status] [ADT] Stat ADT 04/12/19 22:15 Active Oxygen Therapy [RC] PRN Care 04/13/19 04:56 Active RT Aerosol Therapy [RC] ASDIRECTED Care 04/12/19 19:09 Active RT Aerosol Therapy [RC] ASDIRECTED Care 04/12/19 22:58 Active Direct Response Consultant Discontinue [Cardiac Monitoring Care 04/12/19 22:55 Active Discontinue] [RC] Click to Edit VTE/DVT Education [RC] PER UNIT ROUTINE Care 04/13/19 04:56 Active Vital Signs [RC] Q4H Care 04/13/19 04:56 Active Consult to Hospice [CONS] Routine Cons 04/13/19 05:54 Active Pureed Diet [DIET] Diet 04/13/19 Breakfast Active CULTURE BLOOD [BC] Stat Lab 04/12/19 19:04 Results CULTURE BLOOD [BC] Stat Lab 04/12/19 19:30 Received RED BLOOD CELLS LP [BBK] Routine Lab 04/13/19 08:49 Ordered Acetaminophen [Tylenol] Med 04/12/19 22:57 Active 650 mg PO Q6H PRN Albuterol/Ipratropium [DuoNeb 3.0-0.5 MG/3 ML] Med 04/12/19 22:58 Active 3 ml NEB Q4HRRT PRN Escitalopram [Lexapro] Med 04/13/19 09:00 Active 10 mg PO DAILY Furosemide [Lasix] Med 04/13/19 09:00 Active 20 mg PO DAILY LORazepam [Ativan] Med 04/12/19 22:56 Active 1 mg IVPUSH Q6H PRN LORazepam [Ativan] Med 04/13/19 04:55 Active 1 mg PO BID PRN Levofloxacin/Dextrose 5%-Water [Levaquin in D5W 250 MG/ Med 04/13/19 21:00 Active 50 ML] 250 mg Premix Bag 1 bag IV Q24H Magnesium Hydroxide [Milk of Magnesia] Med 04/13/19 04:55 Active 30 ml PO DAILY PRN Meloxicam [Mobic] Med 04/13/19 09:00 Active 7.5 mg PO DAILY Temazepam [Restoril] Med 04/13/19 04:56 Active 15 mg PO BEDTIME PRN oxyCODONE Med 04/12/19 22:57 Active 5 mg PO Q4H PRN Blood Culture x2 Reflex Set [OM.PC] Stat Oth 04/12/19 19:19 Ordered Transfuse PRBC [Transfuse Red Blood Cells] [COMM] Oth 04/13/19 08:40 Ordered Urgent Resuscitation Status Routine Resus Stat 04/13/19 04:56 Ordered Medication Orders Acetaminophen (Tylenol) 650 mg PO Q6H PRN PRN Reason: Pain Albuterol/Ipratropium (Duoneb 3.0-0.5 Mg/3 Ml) 3 ml NEB Q4HRRT PRN PRN Reason: Shortness of Breath Escitalopram Oxalate (Lexapro) 10 mg PO DAILY [facility] Last Admin: 04/13/19 08:20 Dose: 10 mg Furosemide (Lasix) 20 mg PO DAILY [facility] Last Admin: 04/13/19 08:20 Dose: 20 mg Levofloxacin/Dextrose 250 mg/ (Premix) 50 mls @ 50 mls/hr IV Q24H [facility] Lorazepam (Ativan) 1 mg IVPUSH Q6H PRN PRN Reason: Agitation Lorazepam (Ativan) 1 mg PO BID PRN PRN Reason: Allergies Magnesium Hydroxide (Milk Of Magnesia) 30 ml PO DAILY PRN PRN Reason: Constipation Meloxicam (Mobic) 7.5 mg PO DAILY [facility] Last Admin: 04/13/19 08:20 Dose: 7.5 mg Oxycodone HCl (Oxycodone) 5 mg PO Q4H PRN PRN Reason: Pain (moderate 4-6) Temazepam (Restoril) 15 mg PO BEDTIME PRN PRN Reason: Sleep
[2019-04-13] MEDS ORDERED: Meloxicam 7.5 MG Tab PO SCH (09:00)
[2019-04-13] MEDS ORDERED: Furosemide 20 MG Tab PO SCH (09:00)
[2019-04-13] MEDS ORDERED: Levofloxacin/Dextrose 5%-Water 250 MG in Premix Bag 1 BAG IV SCH (21:00)
[2019-04-13] MEDS ORDERED: Levofloxacin/Dextrose 5%-Water 500 MG in Premix Bag 1 BAG IV ONE (23:00)
[2019-04-14 06:05] LABS: CHLORIDE,CL 113 mmol/L (98-107); SODIUM,NA 150 mmol/L (136-145)
--- NOTE | 2019-04-14 09:13 | PCM.PN ---
<Siria Dennis M - Last Filed: 04/14/19 16:22> - General Info Date of Service: 04/14/19 Admission Dx/Problem (Free Text): Admission Diagnosis/Problem Admission Diagnosis/Problem Pneumonia Subjective Update: Non verbal, no family at bedside Spoke with sonBobo, and daughter, Alessandra via telephone this morning regarding prognosis and recommendations for Hospice. They have some differing opinions but are planning on meeting with Hospice this afternoon. - Patient Data Vitals - Most Recent: Last Vital Signs Temp 98.1 F 04/14/19 07:39 Pulse 104 H 04/14/19 07:39 Resp 18 04/14/19 07:39 BP 135/67 04/14/19 07:39 Pulse Ox 91 L 04/14/19 07:39 Weight - Most Recent: 87.09 kg I&O - Last 24 Hours: Intake & Output 04/13/19 04/14/19 04/14/19 22:59 06:59 14:59 Intake Total 878 170 Balance 878 170 Lab Results Last 24 Hours: Laboratory Results - last 24 hr 04/13/19 04/13/19 04/14/19 Range/Units 09:06 19:42 05:10 WBC 11.58 H (4.0-11.0) K/uL RBC 3.65 L (4.30-5.90) M/uL Hgb 9.0 L 9.0 L (12.0-16.0) g/dL Hct 30.5 L 30.4 L (36.0-46.0) % MCV 83.3 (80.0-98.0) fL MCH 24.7 L (27.0-32.0) pg MCHC 29.6 L (31.0-37.0) g/dL RDW Std Deviation 50.3 (28.0-62.0) fl RDW Coeff of Wil 17 H (11.0-15.0) % Plt Count 463 H (150-400) K/uL MPV 9.20 (7.40-12.00) fL Nucleated RBC % 0.0 /100WBC Nucleated RBCs # 0 K/uL Sodium (136-145) mmol/L Potassium (3.5-5.1) mmol/L Chloride (98-107) mmol/L Carbon Dioxide (21.0-32.0) mmol/L BUN (7.0-18.0) mg/dL Creatinine (0.6-1.0) mg/dL Est Cr Clr Drug Dosing mL/min Estimated GFR (MDRD) ml/min Glucose (74-106) mg/dL Calcium (8.5-10.1) mg/dL Blood Type O POSITIVE Antibody Screen NEGATIVE Crossmatch See Detail 04/14/19 Range/Units 05:10 WBC (4.0-11.0) K/uL RBC (4.30-5.90) M/uL Hgb (12.0-16.0) g/dL Hct (36.0-46.0) % MCV (80.0-98.0) fL MCH (27.0-32.0) pg MCHC (31.0-37.0) g/dL RDW Std Deviation (28.0-62.0) fl RDW Coeff of Wil (11.0-15.0) % Plt Count (150-400) K/uL MPV (7.40-12.00) fL Nucleated RBC % /100WBC Nucleated RBCs # K/uL Sodium 150 H (136-145) mmol/L Potassium 3.2 L (3.5-5.1) mmol/L Chloride 113 H (98-107) mmol/L Carbon Dioxide 28.4 (21.0-32.0) mmol/L BUN 19 H (7.0-18.0) mg/dL Creatinine 0.8 (0.6-1.0) mg/dL Est Cr Clr Drug Dosing 55.43 mL/min Estimated GFR (MDRD) > 60.0 ml/min Glucose 83 (74-106) mg/dL Calcium 9.0 (8.5-10.1) mg/dL Blood Type Antibody Screen Crossmatch Murphy Results Last 24 Hours: Microbiology 04/12/19 19:30 Aerobic Blood Culture - Preliminary Blood - Venous - Lab Draw NO GROWTH AFTER 1 DAY Anaerobic Blood Culture - Preliminary NO GROWTH AFTER 1 DAY 04/12/19 19:04 Aerobic Blood Culture - Preliminary Blood - Venous NO GROWTH AFTER 1 DAY Anaerobic Blood Culture - Final Med Orders - Current: Current Medications Acetaminophen (Tylenol) 650 mg PO Q6H PRN PRN Reason: Pain Albuterol/Ipratropium (Duoneb 3.0-0.5 Mg/3 Ml) 3 ml NEB Q4HRRT PRN PRN Reason: Shortness of Breath Escitalopram Oxalate (Lexapro) 10 mg PO DAILY [facility] Last Admin: 04/13/19 08:20 Dose: 10 mg Levofloxacin/Dextrose 250 mg/ (Premix) 50 mls @ 50 mls/hr IV Q24H [facility] Last Admin: 04/13/19 20:35 Dose: 50 mls/hr Lorazepam (Ativan) 1 mg IVPUSH Q6H PRN PRN Reason: Agitation Last Admin: 04/13/19 22:44 Dose: 1 mg Lorazepam (Ativan) 1 mg PO BID PRN PRN Reason: Allergies Magnesium Hydroxide (Milk Of Magnesia) 30 ml PO DAILY PRN PRN Reason: Constipation Last Admin: 04/14/19 06:59 Dose: 30 ml Oxycodone HCl (Oxycodone) 5 mg PO Q4H PRN PRN Reason: Pain (moderate 4-6) Last Admin: 04/13/19 13:30 Dose: 5 mg Temazepam (Restoril) 15 mg PO BEDTIME PRN PRN Reason: Sleep Discontinued Medications Albuterol/Ipratropium (Duoneb 3.0-0.5 Mg/3 Ml) 3 ml NEB ONETIME ONE Stop: 04/12/19 19:10 Last Admin: 04/12/19 19:45 Dose: 3 ml Furosemide (Lasix) 20 mg PO DAILY [facility] Last Admin: 04/13/19 08:20 Dose: 20 mg Heparin Sodium (Porcine) (Heparin Sodium) 5,000 units SUBCUT Q8H [facility] Last Admin: 04/13/19 05:32 Dose: 5,000 units Sodium Chloride (Normal Saline) 1,000 mls @ 100 mls/hr IV STAT ONE Stop: 04/13/19 05:08 Last Infusion: 04/12/19 20:18 Dose: 999 mls/hr Levofloxacin/Dextrose 750 mg/ (Premix) 150 mls @ 100 mls/hr IV ONETIME ONE Stop: 04/12/19 22:39 Last Admin: 04/12/19 21:54 Dose: 100 mls/hr Levofloxacin/Dextrose 500 mg/ (Premix) 100 mls @ 100 mls/hr IV NOW ONE Stop: 04/13/19 23:59 Sodium Chloride (Normal Saline) 1,000 mls @ 75 mls/hr IV ASDIRECTED [facility] Last Admin: 04/12/19 23:21 Dose: 75 mls/hr Iopamidol (Isovue-370 (76%)) 100 ml IVPUSH ONETIME ONE Stop: 04/12/19 21:40 Last Admin: 04/12/19 21:44 Dose: 100 ml Lorazepam (Ativan) 0.5 mg IVPUSH ONETIME ONE Stop: 04/12/19 19:02 Last Admin: 04/12/19 20:10 Dose: 0.5 mg Meloxicam (Mobic) 7.5 mg PO DAILY [facility] Last Admin: 04/13/19 08:20 Dose: 7.5 mg - Exam Quality Assessment: Supplemental Oxygen General: Alert. No: Oriented, Cooperative (agitated and does not allow much for assessment.) Lungs: Clear to Auscultation, Normal Respiratory Effort Cardiovascular: Regular Rate, Regular Rhythm GI/Abdominal Exam: Normal Bowel Sounds, Soft, Non-Tender Extremities: Normal Inspection, Normal Range of Motion, Pedal Edema (+1 pitting edema) Neurological: No New Focal Deficit Psy/Mental Status: Alert, Agitated - Problem List & Annotations (1) Palliative care status SNOMED Code(s): 741554212 Code(s): Z51.5 - ENCOUNTER FOR PALLIATIVE CARE Status: Acute Current Visit: Yes (2) Dehydration SNOMED Code(s): 89411348 Code(s): E86.0 - DEHYDRATION Status: Acute Current Visit: Yes (3) Dementia SNOMED Code(s): 73971740 Code(s): F03.90 - UNSPECIFIED DEMENTIA WITHOUT BEHAVIORAL DISTURBANCE Status: Acute Current Visit: Yes Qualifiers: Dementia type: unspecified type Dementia behavioral disturbance: with behavioral disturbance Qualified Code(s): F03.91 - Unspecified dementia with behavioral disturbance (4) Left lower lobe pneumonia SNOMED Code(s): 892231535 Code(s): J18.1 - LOBAR PNEUMONIA, UNSPECIFIED ORGANISM Status: Acute Current Visit: Yes Qualifiers: Pneumonia type: due to unspecified organism Qualified Code(s): J18.1 - Lobar pneumonia, unspecified organism (5) Total self-care deficit SNOMED Code(s): 72220399 Code(s): R41.89 - OTH SYMPTOMS AND SIGNS W COGNITIVE FUNCTIONS AND AWARENESS Status: Acute Current Visit: Yes - Problem List Review Problem List Initiated/Reviewed/Updated: Yes - Plan Plan:: This 78 year old admitted with LLL pneumonia and dehydration 1. Pneumonia: Possible aspiration, continue Levaquin. IV was lost this morning, will transition to PO today. 2. Dehydration: Hypernatremia, hyperchloremia noted this morning, again IV lost unable to give D5w. Patient not eating well or drinking well. 3. Liver mass: Noted on CT, concerning for primary liver neoplasm or metastasis , 4.6cm 4. End stage dementia: Non verbal and not eating or swallowing well. Had long discussion with family this morning via telephone prior to meeting with hospice to talk with them regarding prognosis and recommendation for Hospice care. After discussion with Hospice, will transision patient to palliative measures and will be admitted to Hospice care at [facility] tomorrow. Dispo: in am to [facility] on Hospice. <Kaiser Ravi - Last Filed: 04/14/19 17:49> - General Info Admission Dx/Problem (Free Text): I have seen and examined to patient independently of Siria Dennis CNP. I have discussed the case for care of this patient with her. I have reviewed and approve of the plan of care as outlined by MARK. Please see orders. - Patient Data Vitals - Most Recent: Last Vital Signs Temp 36.7 C 04/14/19 16:59 Pulse 96 04/14/19 16:59 Resp 16 04/14/19 16:59 BP 133/72 04/14/19 16:59 Pulse Ox 94 L 04/14/19 16:59 I&O - Last 24 Hours: Intake & Output 04/14/19 04/14/19 04/14/19 06:59 14:59 22:59 Intake Total 170 300 Output Total 0 Balance 170 300 Lab Results Last 24 Hours: Laboratory Results - last 24 hr 04/13/19 04/13/19 04/14/19 Range/Units 09:06 19:42 05:10 WBC 11.58 H (4.0-11.0) K/uL RBC 3.65 L (4.30-5.90) M/uL Hgb 9.0 L 9.0 L (12.0-16.0) g/dL Hct 30.5 L 30.4 L (36.0-46.0) % MCV 83.3 (80.0-98.0) fL MCH 24.7 L (27.0-32.0) pg MCHC 29.6 L (31.0-37.0) g/dL RDW Std Deviation 50.3 (28.0-62.0) fl RDW Coeff of Wil 17 H (11.0-15.0) % Plt Count 463 H (150-400) K/uL MPV 9.20 (7.40-12.00) fL Nucleated RBC % 0.0 /100WBC Nucleated RBCs # 0 K/uL Sodium (136-145) mmol/L Potassium (3.5-5.1) mmol/L Chloride (98-107) mmol/L Carbon Dioxide (21.0-32.0) mmol/L BUN (7.0-18.0) mg/dL Creatinine (0.6-1.0) mg/dL Est Cr Clr Drug Dosing mL/min Estimated GFR (MDRD) ml/min Glucose (74-106) mg/dL Calcium (8.5-10.1) mg/dL Crossmatch See Detail 04/14/19 Range/Units 05:10 WBC (4.0-11.0) K/uL RBC (4.30-5.90) M/uL Hgb (12.0-16.0) g/dL Hct (36.0-46.0) % MCV (80.0-98.0) fL MCH (27.0-32.0) pg MCHC (31.0-37.0) g/dL RDW Std Deviation (28.0-62.0) fl RDW Coeff of Wil (11.0-15.0) % Plt Count (150-400) K/uL MPV (7.40-12.00) fL Nucleated RBC % /100WBC Nucleated RBCs # K/uL Sodium 150 H (136-145) mmol/L Potassium 3.2 L (3.5-5.1) mmol/L Chloride 113 H (98-107) mmol/L Carbon Dioxide 28.4 (21.0-32.0) mmol/L BUN 19 H (7.0-18.0) mg/dL Creatinine 0.8 (0.6-1.0) mg/dL Est Cr Clr Drug Dosing 55.43 mL/min Estimated GFR (MDRD) > 60.0 ml/min Glucose 83 (74-106) mg/dL Calcium 9.0 (8.5-10.1) mg/dL Crossmatch Murphy Results Last 24 Hours: Microbiology 04/12/19 19:30 Aerobic Blood Culture - Preliminary Blood - Venous - Lab Draw NO GROWTH AFTER 1 DAY Anaerobic Blood Culture - Preliminary NO GROWTH AFTER 1 DAY 04/12/19 19:04 Aerobic Blood Culture - Preliminary Blood - Venous NO GROWTH AFTER 1 DAY Anaerobic Blood Culture - Final Med Orders - Current: Current Medications Acetaminophen (Tylenol) 650 mg PO Q6H PRN PRN Reason: Pain Albuterol/Ipratropium (Duoneb 3.0-0.5 Mg/3 Ml) 3 ml NEB Q4HRRT PRN PRN Reason: Shortness of Breath Escitalopram Oxalate (Lexapro) 10 mg PO DAILY [facility] Last Admin: 04/14/19 09:27 Dose: 10 mg Levofloxacin (Levaquin) 750 mg PO Q24H [facility] Lorazepam (Ativan) 1 mg PO Q6H PRN PRN Reason: anxiety/agitation Magnesium Hydroxide (Milk Of Magnesia) 30 ml PO DAILY PRN PRN Reason: Constipation Last Admin: 04/14/19 06:59 Dose: 30 ml Oxycodone HCl (Oxycodone) 5 mg PO Q4H PRN PRN Reason: Pain (moderate 4-6) Last Admin: 04/13/19 13:30 Dose: 5 mg Temazepam (Restoril) 15 mg PO BEDTIME PRN PRN Reason: Sleep Discontinued Medications Albuterol/Ipratropium (Duoneb 3.0-0.5 Mg/3 Ml) 3 ml NEB ONETIME ONE Stop: 04/12/19 19:10 Last Admin: 04/12/19 19:45 Dose: 3 ml Furosemide (Lasix) 20 mg PO DAILY [facility] Last Admin: 04/13/19 08:20 Dose: 20 mg Heparin Sodium (Porcine) (Heparin Sodium) 5,000 units SUBCUT Q8H [facility] Last Admin: 04/13/19 05:32 Dose: 5,000 units Sodium Chloride (Normal Saline) 1,000 mls @ 100 mls/hr IV STAT ONE Stop: 04/13/19 05:08 Last Infusion: 04/12/19 20:18 Dose: 999 mls/hr Levofloxacin/Dextrose 750 mg/ (Premix) 150 mls @ 100 mls/hr IV ONETIME ONE Stop: 04/12/19 22:39 Last Admin: 04/12/19 21:54 Dose: 100 mls/hr Levofloxacin/Dextrose 500 mg/ (Premix) 100 mls @ 100 mls/hr IV NOW ONE Stop: 04/13/19 23:59 Sodium Chloride (Normal Saline) 1,000 mls @ 75 mls/hr IV ASDIRECTED [facility] Last Admin: 04/12/19 23:21 Dose: 75 mls/hr Levofloxacin/Dextrose 250 mg/ (Premix) 50 mls @ 50 mls/hr IV Q24H [facility] Last Admin: 04/13/19 20:35 Dose: 50 mls/hr Potassium Chloride 40 meq/ (Dextrose/Water) 1,020 mls @ 75 mls/hr IV ASDIRECTED [facility] Last Admin: 04/14/19 10:57 Dose: 75 mls/hr Iopamidol (Isovue-370 (76%)) 100 ml IVPUSH ONETIME ONE Stop: 04/12/19 21:40 Last Admin: 04/12/19 21:44 Dose: 100 ml Lorazepam (Ativan) 0.5 mg IVPUSH ONETIME ONE Stop: 04/12/19 19:02 Last Admin: 04/12/19 20:10 Dose: 0.5 mg Lorazepam (Ativan) 1 mg IVPUSH Q6H PRN PRN Reason: Agitation Last Admin: 04/13/19 22:44 Dose: 1 mg Lorazepam (Ativan) 1 mg PO BID PRN PRN Reason: Allergies Meloxicam (Mobic) 7.5 mg PO DAILY [facility] Last Admin: 04/13/19 08:20 Dose: 7.5 mg
[2019-04-14] MEDS: Escitalopram 10 MG Tab PO SCH (09:27)
[2019-04-14] MEDS ORDERED: Potassium Chloride 40 MEQ in Dextrose 5% in Water 1,000 ML IV SCH ×2 (10:00)
[2019-04-14] MEDS ORDERED: Levofloxacin 250 MG Tab PO SCH (21:00)
[2019-04-14] MEDS: LORazepam Conc Solution 2 MG/ML 30 ML Bottle PO PRN (21:41)
--- NOTE | 2019-04-15 07:56 | PCM.DCSUM1 ---
<Siria Dennis M - Last Filed: 04/15/19 10:41> Discharge Summary - Hospital Course Brief History: 78F history of dementia from [facility] presented to the ER with concerns of possible aspiration the night before. As per it project manager, she has not been her usual self. ER work up found the patient to have bilateral infiltrates with predominately a LLL pneumonia. CT angiography was unable to rule out a PE but clinically, there is a etiology (pneumonia) for the patient's state along with no calf tenderness, tachypnea, or other risks concerning of a PE. Diagnosis: Stroke: No - Discharge Data Discharge Date: 04/15/19 Discharge Disposition: DC/Tfer to [facility] 03 Condition: Fair - Discharge Diagnosis/Problem(s) (1) Palliative care status SNOMED Code(s): 525790690 ICD Code: Z51.5 - ENCOUNTER FOR PALLIATIVE CARE Status: Acute (2) Dehydration SNOMED Code(s): 51255220 ICD Code: E86.0 - DEHYDRATION Status: Acute (3) Dementia SNOMED Code(s): 28285878 ICD Code: F03.90 - UNSPECIFIED DEMENTIA WITHOUT BEHAVIORAL DISTURBANCE Status: Acute Qualifiers: Dementia type: unspecified type Dementia behavioral disturbance: with behavioral disturbance Qualified Code(s): F03.91 - Unspecified dementia with behavioral disturbance (4) Left lower lobe pneumonia SNOMED Code(s): 344288379 ICD Code: J18.1 - LOBAR PNEUMONIA, UNSPECIFIED ORGANISM Status: Acute Qualifiers: Pneumonia type: due to unspecified organism Qualified Code(s): J18.1 - Lobar pneumonia, unspecified organism (5) Total self-care deficit SNOMED Code(s): 72607621 ICD Code: R41.89 - OTH SYMPTOMS AND SIGNS W COGNITIVE FUNCTIONS AND AWARENESS Status: Acute - Patient Summary/Data Consults: Consultations 04/13/19 05:54 Consult to Hospice [CONS] Routine - Patient Instructions Diet: Pureed Activity: As Tolerated Showering/Bathing: May Shower Other/Special Instructions: Hospice to admit on transfer to [place]. - Discharge Plan *PRESCRIPTION DRUG MONITORING PROGRAM REVIEWED*: Not Applicable *COPY OF PRESCRIPTION DRUG MONITORING REPORT IN PATIENT GLORY: Not Applicable Prescriptions/Med Rec: LORazepam [Ativan] 1 mg PO Q6H PRN #1 bottle PRN Reason: anxiety/agitation Home Medications: Home Meds Bisacodyl [Biscolax] 10 mg RC DAILY PRN 04/12/19 [History] Escitalopram [Lexapro] 10 mg PO DAILY 04/12/19 [History] Magnesium Hydroxide [Milk of Magnesia] 30 ml PO DAILY PRN 04/12/19 [History] Acetaminophen [Tylenol Arthritis] 650 mg PO Q4H PRN #0 04/15/19 [Rx] LORazepam [Ativan] 1 mg PO Q6H PRN #1 bottle 04/15/19 [Rx] Oxygen Therapy Mode: Room Air Patient Handouts: Lorazepam tablets Referrals: Jose Luis Salas MD [Primary Care Provider] - 04/17/19 (See Dr. Salas on [place] Rounds) - Discharge Summary/Plan Comment DC Time >30 min.: Yes (spoke with son and Dr Salas regarding transfer) Discharge Summary/Plan Comment: Admitting Diagnoses: LLL pneumonia Leukocytosis Anemia Discharge Diagnoses: Palliative Care Hospice Liver mass End stage Dementia Trae was admitted and initially treated for LLL pneumonia with Levaquin. She was noted to have anemia and give [address] of abdomen/pelvis had been obtained as well and was she noted to have 4.6 liver mass, high suspect for neoplasm either primary liver or metastasis. She is non-verbal and was refusing food and water along with medications. I spoke with son Nestor, who seems to have unrealistic expectations for his mothers rehabilitation. He was like her to get better and live in her own apartment. I also spoke with daughter Alessandra who is more realistic regarding their mother's prognosis and requested Hospice consult. Family, many present and via telephone yesterday agreed to place Trae on Hospice and strive for comfort. She again has refused oral medications, I will discontinue all oral meds. Continue Ativan PRN solution for agitation. ALong with any medications Hospice sees as beneficial in care. I will speak with Dr Salas regarding Hospice plan. I spoke with son Nestor this morning, he is aware his mother is returning to [place] today with Hospice. - General Info Date of Service: 04/15/19 Admission Dx/Problem (Free Text: Pneumonia, Liver mass, end stage dementia Subjective Update: Non verbal. Alert this morning. Not agitated. - Patient Data Vitals - Most Recent: Last Vital Signs Temp 98.6 F 05/20/19 20:00 Pulse 99 04/14/19 20:00 Resp 22 H 04/14/19 20:00 BP 147/76 H 04/14/19 20:00 Pulse Ox 98 04/14/19 20:00 Weight - Most Recent: 87.09 kg I&O - Last 24 hours: Intake & Output 04/14/19 04/15/19 04/15/19 22:59 06:59 14:59 Intake Total 300 25 Output Total 0 385 Balance 300 -360 STEVEN Results - Last 24 hrs: Microbiology 04/12/19 19:30 Aerobic Blood Culture - Preliminary Blood - Venous - Lab Draw NO GROWTH AFTER 2 DAYS Anaerobic Blood Culture - Preliminary NO GROWTH AFTER 2 DAYS 04/12/19 19:04 Aerobic Blood Culture - Preliminary Blood - Venous NO GROWTH AFTER 2 DAYS Anaerobic Blood Culture - Final Med Orders - Current: Current Medications Acetaminophen (Tylenol) 650 mg PO Q6H PRN PRN Reason: Pain Albuterol/Ipratropium (Duoneb 3.0-0.5 Mg/3 Ml) 3 ml NEB Q4HRRT PRN PRN Reason: Shortness of Breath Escitalopram Oxalate (Lexapro) 10 mg PO DAILY [facility] Last Admin: 04/14/19 09:27 Dose: 10 mg Levofloxacin (Levaquin) 750 mg PO Q24H [facility] Last Admin: 04/14/19 21:41 Dose: Not Given Lorazepam (Ativan) 1 mg PO Q6H PRN PRN Reason: anxiety/agitation Last Admin: 04/14/19 21:41 Dose: 1 mg Magnesium Hydroxide (Milk Of Magnesia) 30 ml PO DAILY PRN PRN Reason: Constipation Last Admin: 04/14/19 06:59 Dose: 30 ml Oxycodone HCl (Oxycodone) 5 mg PO Q4H PRN PRN Reason: Pain (moderate 4-6) Last Admin: 04/13/19 13:30 Dose: 5 mg Temazepam (Restoril) 15 mg PO BEDTIME PRN PRN Reason: Sleep Discontinued Medications Albuterol/Ipratropium (Duoneb 3.0-0.5 Mg/3 Ml) 3 ml NEB ONETIME ONE Stop: 04/12/19 19:10 Last Admin: 04/12/19 19:45 Dose: 3 ml Furosemide (Lasix) 20 mg PO DAILY [facility] Last Admin: 04/13/19 08:20 Dose: 20 mg Heparin Sodium (Porcine) (Heparin Sodium) 5,000 units SUBCUT Q8H [facility] Last Admin: 04/13/19 05:32 Dose: 5,000 units Sodium Chloride (Normal Saline) 1,000 mls @ 100 mls/hr IV STAT ONE Stop: 04/13/19 05:08 Last Infusion: 04/12/19 20:18 Dose: 999 mls/hr Levofloxacin/Dextrose 750 mg/ (Premix) 150 mls @ 100 mls/hr IV ONETIME ONE Stop: 04/12/19 22:39 Last Admin: 04/12/19 21:54 Dose: 100 mls/hr Levofloxacin/Dextrose 500 mg/ (Premix) 100 mls @ 100 mls/hr IV NOW ONE Stop: 04/13/19 23:59 Sodium Chloride (Normal Saline) 1,000 mls @ 75 mls/hr IV ASDIRECTED [facility] Last Admin: 04/12/19 23:21 Dose: 75 mls/hr Levofloxacin/Dextrose 250 mg/ (Premix) 50 mls @ 50 mls/hr IV Q24H [facility] Last Admin: 04/13/19 20:35 Dose: 50 mls/hr Potassium Chloride 40 meq/ (Dextrose/Water) 1,020 mls @ 75 mls/hr IV ASDIRECTED [facility] Last Admin: 04/14/19 10:57 Dose: 75 mls/hr Iopamidol (Isovue-370 (76%)) 100 ml IVPUSH ONETIME ONE Stop: 04/12/19 21:40 Last Admin: 04/12/19 21:44 Dose: 100 ml Lorazepam (Ativan) 0.5 mg IVPUSH ONETIME ONE Stop: 04/12/19 19:02 Last Admin: 04/12/19 20:10 Dose: 0.5 mg Lorazepam (Ativan) 1 mg IVPUSH Q6H PRN PRN Reason: Agitation Last Admin: 04/13/19 22:44 Dose: 1 mg Lorazepam (Ativan) 1 mg PO BID PRN PRN Reason: Allergies Meloxicam (Mobic) 7.5 mg PO DAILY [facility] Last Admin: 04/13/19 08:20 Dose: 7.5 mg - Exam General: Reports: Alert, Cooperative, No Acute Distress. Denies: Oriented Lungs: Reports: Clear to Auscultation, Normal Respiratory Effort Cardiovascular: Reports: Regular Rate, Regular Rhythm GI/Abdominal Exam: Normal Bowel Sounds, Soft, Non-Tender Extremities: Normal Inspection, Normal Range of Motion, Pedal Edema (+1 edema, non pitting.) Skin: Reports: Warm, Dry Neurological: Reports: No New Focal Deficit Psy/Mental Status: Reports: Alert, Normal Affect, Normal Mood <Kaiser Ravi - Last Filed: 04/15/19 17:28> Discharge Summary - Hospital Course HPI Initial Comments: I have seen and examined to patient independently of Siria Dennis CNP. I have discussed the case for care of this patient with her. I have reviewed and approve of the plan of care as outlined by MARK. Please see orders. - Patient Summary/Data Consults: Consultations 04/13/19 05:54 Consult to Hospice [CONS] Routine - Patient Data Vitals - Most Recent: Last Vital Signs Temp 36.9 C 04/15/19 08:00 Pulse 109 H 04/15/19 08:00 Resp 18 04/15/19 08:00 BP 120/79 04/15/19 08:00 Pulse Ox 91 L 04/15/19 10:22 I&O - Last 24 hours: Intake & Output 04/15/19 04/15/19 04/15/19 06:59 14:59 22:59 Intake Total 25 240 Output Total 385 0 Balance -360 240 STEVEN Results - Last 24 hrs: Microbiology 04/12/19 19:30 Aerobic Blood Culture - Preliminary Blood - Venous - Lab Draw NO GROWTH AFTER 2 DAYS Anaerobic Blood Culture - Preliminary NO GROWTH AFTER 2 DAYS 04/12/19 19:04 Aerobic Blood Culture - Preliminary Blood - Venous NO GROWTH AFTER 2 DAYS Anaerobic Blood Culture - Final Med Orders - Current: Current Medications Discontinued Medications Acetaminophen (Tylenol) 650 mg PO Q6H PRN PRN Reason: Pain Albuterol/Ipratropium (Duoneb 3.0-0.5 Mg/3 Ml) 3 ml NEB ONETIME ONE Stop: 04/12/19 19:10 Last Admin: 04/12/19 19:45 Dose: 3 ml Albuterol/Ipratropium (Duoneb 3.0-0.5 Mg/3 Ml) 3 ml NEB Q4HRRT PRN PRN Reason: Shortness of Breath Escitalopram Oxalate (Lexapro) 10 mg PO DAILY [facility] Last Admin: 04/15/19 09:35 Dose: 10 mg Furosemide (Lasix) 20 mg PO DAILY [facility] Last Admin: 04/13/19 08:20 Dose: 20 mg Heparin Sodium (Porcine) (Heparin Sodium) 5,000 units SUBCUT Q8H [facility] Last Admin: 04/13/19 05:32 Dose: 5,000 units Sodium Chloride (Normal Saline) 1,000 mls @ 100 mls/hr IV STAT ONE Stop: 04/13/19 05:08 Last Infusion: 04/12/19 20:18 Dose: 999 mls/hr Levofloxacin/Dextrose 750 mg/ (Premix) 150 mls @ 100 mls/hr IV ONETIME ONE Stop: 04/12/19 22:39 Last Admin: 04/12/19 21:54 Dose: 100 mls/hr Levofloxacin/Dextrose 500 mg/ (Premix) 100 mls @ 100 mls/hr IV NOW ONE Stop: 04/13/19 23:59 Sodium Chloride (Normal Saline) 1,000 mls @ 75 mls/hr IV ASDIRECTED [facility] Last Admin: 04/12/19 23:21 Dose: 75 mls/hr Levofloxacin/Dextrose 250 mg/ (Premix) 50 mls @ 50 mls/hr IV Q24H [facility] Last Admin: 04/13/19 20:35 Dose: 50 mls/hr Potassium Chloride 40 meq/ (Dextrose/Water) 1,020 mls @ 75 mls/hr IV ASDIRECTED [facility] Last Admin: 04/14/19 10:57 Dose: 75 mls/hr Iopamidol (Isovue-370 (76%)) 100 ml IVPUSH ONETIME ONE Stop: 04/12/19 21:40 Last Admin: 04/12/19 21:44 Dose: 100 ml Levofloxacin (Levaquin) 750 mg PO Q24H [facility] Last Admin: 04/14/19 21:41 Dose: Not Given Lorazepam (Ativan) 0.5 mg IVPUSH ONETIME ONE Stop: 04/12/19 19:02 Last Admin: 04/12/19 20:10 Dose: 0.5 mg Lorazepam (Ativan) 1 mg IVPUSH Q6H PRN PRN Reason: Agitation Last Admin: 04/13/19 22:44 Dose: 1 mg Lorazepam (Ativan) 1 mg PO BID PRN PRN Reason: Allergies Lorazepam (Ativan) 1 mg PO Q6H PRN PRN Reason: anxiety/agitation Last Admin: 04/15/19 09:24 Dose: 1 mg Magnesium Hydroxide (Milk Of Magnesia) 30 ml PO DAILY PRN PRN Reason: Constipation Last Admin: 04/14/19 06:59 Dose: 30 ml Meloxicam (Mobic) 7.5 mg PO DAILY XIOMY Last Admin: 04/13/19 08:20 Dose: 7.5 mg Oxycodone HCl (Oxycodone) 5 mg PO Q4H PRN PRN Reason: Pain (moderate 4-6) Last Admin: 04/13/19 13:30 Dose: 5 mg Temazepam (Restoril) 15 mg PO BEDTIME PRN PRN Reason: Sleep
[2019-04-15 08:33] VITALS: BP 120/79
[2019-04-15] MEDS: LORazepam Conc Solution 2 MG/ML 30 ML Bottle PO PRN (09:24)
[2019-04-15] MEDS: Escitalopram 10 MG Tab PO SCH (09:35)
== END 2019-04-15 10:30 ==
LOC: MW.ED 18:05 → MW.MS 22:15
PROVIDERS: ADMIT Internal Medicine; ATTEND Internal Medicine
DX: J18.1 Lobar pneumonia, unspecified organism (principal); E86.0 Dehydration; G30.9 Alzheimer's disease, unspecified; F02.80 Dementia in other diseases classified elsewhere, unspecified severity, without behavioral disturbance, psychotic disturbance, mood disturbance, and anxiety; R41.89 Other symptoms and signs involving cognitive functions and awareness; D72.829 Elevated white blood cell count, unspecified; D64.9 Anemia, unspecified; N17.9 Acute kidney failure, unspecified; D47.3 Essential (hemorrhagic) thrombocythemia; R16.0 Hepatomegaly, not elsewhere classified; Z51.5 Encounter for palliative care; Z86.79 Personal history of other diseases of the circulatory system; Z91.013 Allergy to seafood
CPT/HCPCS: 36415; 36430; 71045; 71275; 74177; 80048; 80053; 81001; 83605; 85014; 85018; 85025; 85027; 85379; 86850; 86900; 86901; 86920; 86921; 86922; 87040; 94640; 96361; 96365; 96375; 99285; A4217; A9270; J1644; J1956; J2060; J3480; J7040; J7060; P9016; Q9967; 96372; 96376; G0378; J7620-GY